=== PATIENT | female | born 1995 | race Native Hawaiian/Other Pacific Islander ===

== ENCOUNTER 2017-08-27 18:30 | Observation (INO) | payer SELFPAY ==
[~2017-08-27] VITALS: Ht 162.6 cm; Wt 75.0 kg
[2017-08-27 18:31] VITALS: BP 136/76; PULSE 125; RESP 20; TEMP 103.1; O2SAT 100
[2017-08-27] MEDS ORDERED: SODIUM CHLOR 0.9% 1000 ML INJ 800 ML IV ONE (20:17)
[2017-08-27] MEDS ORDERED: SODIUM CHLOR 0.9% 1000 ML INJ 1,000 ML IV ONE ×2 (20:17→22:30)
[2017-08-27] MEDS ORDERED: KETOROLAC TROMETHAMINE 30 MG/ML (IVP) VIAL IV PUSH ONE (20:30)
[2017-08-27] MEDS ORDERED: METOCLOPRAMIDE HCL 10 MG/2 ML VIAL IV PUSH ONE (20:30)
[2017-08-27] MEDS ORDERED: ACETAMINOPHEN 325 MG TAB PO ONE (20:30)
--- NOTE | 2017-08-27 20:33 | PD ---
HPI Chief Complaint: Fever Time Seen by Provider: 19:57 Travel History International Travel<30 days: No Contact w/Intl Traveler<30days: No Traveled to known affect area: No History of Present Illness HPI 22-year-old female here for evaluation of fever and headache. The patient is in college and lives in the dormitory. Symptoms started yesterday evening with fever and headache. Patient also reports severe sore throat. She has felt nauseous with vomiting as well. Headache is diffuse and pressure-like. No neck pain or stiffness. No rash. No visual disturbance. No paresthesias or motor deficits. No cough or upper respiratory symptoms. PFSH Past Medical History Immunizations Current: Yes Tetanus Vaccination: Unknown Influenza Vaccination: No ?: Unknown LMP: 08/20/17 Social History Alcohol Use: No Tobacco Use: No Substance Use: No Allergies-Medications (Allergen,Severity, Reaction): Coded Allergies: No Known Allergies (Unverified , 08/27/17) Reported Meds & Prescriptions Reported Meds & Active Scripts Active No Active Prescriptions or Reported Medications Review of Systems Except as stated in HPI: all other systems reviewed are Neg Physical Exam Narrative GENERAL: Well-developed, well-nourished, awake, alert, no apparent distress. SKIN: Focused skin assessment warm/dry. No rash. HEAD: Atraumatic. Normocephalic. EYES: Pupils equal and round. No scleral icterus. No injection or drainage. ENT: No nasal bleeding or discharge. Mucous membranes pink and moist. Pharynx is erythematous without exudates. Uvula is midline. Normal phonation. No drooling or stridor. No trismus. NECK: Trachea midline. No JVD. No nuchal rigidity. CARDIOVASCULAR: Regular rate and rhythm. No murmur appreciated. RESPIRATORY: No accessory muscle use. Clear to auscultation. Breath sounds equal bilaterally. GASTROINTESTINAL: Abdomen soft, non-tender, nondistended. MUSCULOSKELETAL: No obvious deformities. No clubbing. No cyanosis. No edema. NEUROLOGICAL: Awake and alert. No obvious cranial nerve deficits. Motor grossly within normal limits. Normal speech. PSYCHIATRIC: Appropriate mood and affect; insight and judgment normal. Data Data Last Documented VS Vital Signs Date Time Temp Pulse Resp B/P (MAP) Pulse Ox O2 Delivery O2 Flow Rate FiO2 08/27/17 22:50 94 16 97/60 (72) 99 Room Air 08/27/17 21:34 98.9 Orders Orders Sepsis Workup Initiated (08/27/17 ) Complete Blood Count With Diff (08/27/17 20:17) Comprehensive Metabolic Panel (08/27/17 20:17) Beta Hcg (Quant/Titer) (08/27/17 20:17) Prothrombin Time / Inr (Pt) (08/27/17 20:17) Act Partial Throm Time (Ptt) (08/27/17 20:17) Lactic Acid Sepsis Protocol (08/27/17 20:17) Urinalysis - C+S If Indicated (08/27/17 20:17) Influenzae A/B Antigen (08/27/17 20:17) Blood Culture (08/27/17 20:17) Chest, Single Ap (08/27/17 20:17) Ecg Monitoring (08/27/17 20:17) Iv Access Insert/Monitor (08/27/17 20:17) Oximetry (08/27/17 20:17) Acetaminophen (Tylenol) (08/27/17 20:30) Sodium Chlor 0.9% 1000 Ml Inj (Ns 1000 M (08/27/17 20:17) Sodium Chlor 0.9% 1000 Ml Inj (Ns 1000 M (08/27/17 20:17) Group A Rapid Strep Screen (08/27/17 20:17) Ketorolac Inj (Toradol Inj) (08/27/17 20:30) Metoclopramide Inj (Reglan Inj) (08/27/17 20:30) Strep Culture (Group A) (08/27/17 20:31) Sodium Chlor 0.9% 1000 Ml Inj (Ns 1000 M (08/27/17 22:30) Labs Laboratory Tests Test 08/27/17 20:31 White Blood Count 10.2 TH/MM3 Red Blood Count 4.90 MIL/MM3 Hemoglobin 13.5 GM/DL Hematocrit 40.6 % Mean Corpuscular Volume 82.9 FL Mean Corpuscular Hemoglobin 27.5 PG Mean Corpuscular Hemoglobin Concent 33.2 % Red Cell Distribution Width 13.1 % Platelet Count 219 TH/MM3 Mean Platelet Volume 8.2 FL Neutrophils (%) (Auto) 87.8 % Lymphocytes (%) (Auto) 4.9 % Monocytes (%) (Auto) 6.7 % Eosinophils (%) (Auto) 0.1 % Basophils (%) (Auto) 0.5 % Neutrophils # (Auto) 9.0 TH/MM3 Lymphocytes # (Auto) 0.5 TH/MM3 Monocytes # (Auto) 0.7 TH/MM3 Eosinophils # (Auto) 0.0 TH/MM3 Basophils # (Auto) 0.1 TH/MM3 CBC Comment DIFF FINAL Differential Comment Prothrombin Time 10.4 SEC Prothromb Time International Ratio 1.0 RATIO Activated Partial Thromboplast Time 31.7 SEC Urine Color LIGHT-YELLOW Urine Turbidity CLEAR Urine pH 7.5 Urine Specific [place] 1.005 Urine Protein NEG mg/dL Urine Glucose (UA) NEG mg/dL Urine Ketones NEG mg/dL Urine Occult Blood NEG Urine Nitrite NEG Urine Bilirubin NEG Urine Urobilinogen LESS THAN 2.0 MG/DL Urine Leukocyte Esterase TRACE Urine RBC 1 /hpf Urine WBC 1 /hpf Urine Squamous Epithelial Cells 1 /hpf Microscopic Urinalysis Comment CATH-CULT NOT IND Blood Urea Nitrogen 11 MG/DL Creatinine 0.82 MG/DL Random Glucose 83 MG/DL Total Protein 8.3 GM/DL Albumin 4.2 GM/DL Calcium Level 9.3 MG/DL Alkaline Phosphatase 99 U/L Aspartate Amino Transf (AST/SGOT) 22 U/L Alanine Aminotransferase (ALT/SGPT) 20 U/L Total Bilirubin 0.3 MG/DL Sodium Level 135 MEQ/L Potassium Level 3.5 MEQ/L Chloride Level 103 MEQ/L Carbon Dioxide Level 25.4 MEQ/L Anion Gap 7 MEQ/L Estimat Glomerular Filtration Rate 87 ML/MIN Lactic Acid Level 1.4 mmol/L Human Chorionic Gonadotropin, Quant LESS THAN 1 MIU/ML [facility] Medical Decision Making Medical Screen Exam Complete: Yes Emergency Medical Condition: Yes Differential Diagnosis Sepsis, viral illness, pharyngitis, influenza, meningitis, encephalitis, UTI, pneumonia Narrative Course Initial vital signs show heart rate 125, blood pressure 136/76, pulse ox 100% on room air, oral temp of 103.1F. Repeat vital signs after 2 L normal saline IV and Tylenol show heart rate 113, blood pressure 94/42, pulse ox 98% on room air, oral temp of 98.9F. CBC: WBC 10.2, hemoglobin 13.5, hematocrit 40.6, platelets 219, neutrophils 87.8 %. CMP is unremarkable. Lactic acid is 1.4. Beta hCG is negative. UA is not suggestive of UTI. Influenza is negative. Group A strep is negative. Chest x-ray: No acute disease. The patient rates tachycardic spiders receiving 2 L normal saline IV. Her heart rate is between 110 and 120. She was given IV Reglan and IV Toradol and reports that her headache has completely resolved. There is no nuchal rigidity on exam. Likelihood of meningitis is low. After the third liter of normal saline IV the patient's heart rate remains over 100 at 105 bpm while sleeping, increases to 115 bpm when she awakens. Again she states her headache has resolved. She has defervesced. Given persistent tachycardia, the patient be admitted for overnight observation. Case discussed with hospitalist Dr. Gunter who will admit the patient to her service. The patient is amenable to this plan. Diagnosis Primary Impression: Sinus tachycardia Additional Impression: Fever Qualified Codes: R50.9 - Fever, unspecified Admitting Information Admitting Physician Requests: Observation Scripts No Active Prescriptions or Reported Meds Steven Ortiz MD Aug 27, 2017 20:33
[2017-08-27 21:02] LABS: BASOPHIL # 0.1 TH/MM3 (0-0.2); BASOPHIL % 0.5 % (0.0-2.0); EOSINOPHIL % 0.1 % (0.0-4.0); HEMATOCRIT 40.6 % (35.0-46.0); HEMO FLAGS DIFF FINAL; LYMPH % 4.9 % (9.0-44.0); LYMPHOCYTE # 0.5 TH/MM3 (1.0-4.8); MEAN CELL VOLUME 82.9 FL (80.0-100.0); MEAN CORPUSCULAR HEMOGLOBIN 27.5 PG (27.0-34.0); MEAN CORPUSCULAR HGB CONC 33.2 % (32.0-36.0); MONO % 6.7 % (0.0-8.0); NEUT % 87.8 % (16.0-70.0); PLATELET COUNT 219 TH/MM3 (150-450); RED CELL DISTRIBUTION WIDTH 13.1 % (11.6-17.2); WHITE BLOOD COUNT 10.2 TH/MM3 (4.0-11.0)
[2017-08-27 21:08] LABS: BLOOD, URINE NEG (NEG); GLUCOSE,URINE NEG (NEG); KETONE, URINE NEG (NEG); NITRITE,URINE NEG (NEG); PH, URINE 7.5 (5.0-8.5); SQUAMOUS EPITHELIAL CELL URINE 1 /hpf (0-5); URINE COLOR LIGHT-YELLOW (YELLW/STRAW)
[2017-08-27 21:09] LABS: COMMENT (UR) CATH-CULT NOT IND; CULTURE IF INDICATED CATH CULTURE NOT IND
[2017-08-27 21:17] LABS: APTT (PATIENT) 31.7 SEC (24.3-30.1); PROTHROMBIN TIME - PATIENT 10.4 SEC (9.8-11.6)
[2017-08-27 21:25] LABS: ANION GAP 7 MEQ/L (5-15); AST (GOT) 22 U/L (15-37); BICARBONATE 25.4 MEQ/L (21.0-32.0); BLOOD UREA NITROGEN 11 MG/DL (7-18); CHLORIDE 103 MEQ/L (98-107); GLOMERULAR FILTRATION RATE 87 ML/MIN (>89); POTASSIUM 3.5 MEQ/L (3.5-5.1); SODIUM (NA) 135 MEQ/L (136-145)
[2017-08-27 21:26] LABS: ALT (GPT) 20 U/L (10-53)
--- NOTE | 2017-08-27 21:29 | RADRPT ---
EXAM DATE/TIME: 08/27/2017 20:45 [place] COMPARISON: No previous studies available for comparison. INDICATIONS : Fever and aches. MEDICAL HISTORY : None. SURGICAL HISTORY : None. ENCOUNTER: Initial ACUITY: 3 days PAIN SCORE: 3/10 LOCATION: Bilateral chest FINDINGS: A single view of the chest demonstrates the lungs to be symmetrically aerated without evidence of mas s, infiltrate or effusion. The cardiomediastinal contours are unremarkable. Osseous structures are intact. CONCLUSION: No acute disease. Jamie Hull MD on August 27, 2017 at 21:27 Board Certified Radiologist. This report was verified electronically.
[2017-08-27 21:31] LABS: ALKALINE PHOSPHATASE 99 U/L (45-117); BETA HCG QUANT LESS THAN 1 MIU/ML (0-5); TOTAL BILIRUBIN ADULT 0.3 MG/DL (0.2-1.0)
[2017-08-27 21:34] VITALS: BP 94/42; PULSE 113; RESP 16; TEMP 98.9; O2SAT 98
[2017-08-27 22:50] VITALS: BP 97/60; PULSE 94; RESP 16; O2SAT 99
[2017-08-27] MEDS ORDERED: LACTULOSE SYRUP 20 GM/30 ML CUP PO PRN (23:15)
[2017-08-27] MEDS ORDERED: BISACODYL 10 MG SUPP RECTAL PRN (23:15)
[2017-08-27] MEDS ORDERED: SENNOSIDES 8.6 MG TAB PO PRN (23:15)
[2017-08-27] MEDS ORDERED: ACETAMINOPHEN 325 MG TAB PO PRN (23:15)
[2017-08-27] MEDS ORDERED: NALOXONE HCL 0.4 MG/ML AMP IV PUSH PRN (23:15)
[2017-08-27] MEDS ORDERED: MAGNESIUM HYDROXIDE SUSP 30 ML CUP PO PRN (23:15)
[2017-08-27] MEDS ORDERED: SODIUM CHLORIDE 0.9% FLUSH 10 ML FLUSH IV FLUSH PRN (23:15)
[2017-08-27] MEDS ORDERED: ONDANSETRON HCL 4 MG/2 ML VIAL IVP PRN (23:15)
[2017-08-28] VITALS (9 sets, daily range): BP systolic 104–127; BP diastolic 55–78; PULSE 66–122; RESP 17–20; TEMP 97.9–103; O2SAT 95–100
[2017-08-28] MEDS: SODIUM CHLOR 0.9% 1000 ML INJ 1,000 ML IV SCH ×3 (01:53→16:09)
--- NOTE | 2017-08-28 06:06 | HHI.HP ---
[facility] No Primary Care Physician Admission Diagnosis persistent tachycardia, febrile illness Diagnoses: Travel History International Travel<30 Days: No Contact w/Intl Traveler <30 Da: No Traveled to Known Affected Are: No History of Present Illness 22-year-old female with no past medical history who presents to the emergency department for evaluation of fever and a headache. The patient is a college student who lives in the dorms. She states that her symptoms started yesterday evening with a fever and a headache. She also reports sore throat. Denies cough/shortness of breath. She has had intermittent nausea/emesis. She denies any neck pain or stiffness. No visual disturbances. No paresthesias or motor deficits. On arrival to the emergency department the patient was febrile to 103.1 and was tachycardic to 125. Her fever persisted despite Tylenol and she remained tachycardic. Chest x-ray, UA within normal limits. No leukocytosis however left shift is present. Review of Systems Positive fever/chills Denies blurry vision, otorrhea, rhinorrhea Positive sore throat, no cough No chest pain, palpitations, shortness of breath No abdominal pain Denies constipation/diarrhea/nausea/vomiting Denies muscle pain/weakness No rashes Past Family Social History Past Medical History None Past Surgical History None Reported Medications None Allergies: Coded Allergies: No Known Allergies (Unverified , 08/27/17) Family History No family history of coronary artery disease or diabetes mellitus. Social History Denies alcohol, illicit drugs and tobacco. Physical Exam Vital Signs Vital Signs Date Time Temp Pulse Resp B/P (MAP) Pulse Ox O2 Delivery O2 Flow Rate FiO2 08/28/17 03:42 20 08/28/17 03:40 103.0 122 18 118/65 (82) 97 08/28/17 02:46 103.0 96 18 117/68 (84) 97 08/27/17 22:50 94 16 97/60 (72) 99 Room Air 08/27/17 21:34 98.9 113 16 94/42 (59) 98 Room Air 08/27/17 18:31 103.1 125 20 136/76 (96) 100 Room Air Physical Exam GENERAL: Young female lying in bed SKIN: No rashes, ecchymoses or lesions. Cool and dry. HEAD: Atraumatic. Normocephalic. No temporal or scalp tenderness. EYES: Pupils equal round and reactive. Extraocular motions intact. No scleral icterus. No injection or drainage. ENT: Nose without bleeding, purulent drainage or septal hematoma. Throat without erythema, tonsillar hypertrophy or exudate. Uvula midline. Airway patent. NECK: Trachea midline. No JVD or lymphadenopathy. Supple, nontender, no meningeal signs. CARDIOVASCULAR: Regular rate and rhythm without murmurs, gallops, or rubs. RESPIRATORY: Clear to auscultation. Breath sounds equal bilaterally. No wheezes , rales, or rhonchi. GASTROINTESTINAL: Abdomen soft, non-tender, nondistended. No hepato-splenomegaly , or palpable masses. No guarding. MUSCULOSKELETAL: Extremities without clubbing, cyanosis, or edema. No joint tenderness, effusion, or edema noted. No calf tenderness. NEUROLOGICAL: Awake and alert. Cranial nerves II through XII intact. Motor and sensory grossly within normal limits. Normal speech. Laboratory Laboratory Tests Test 08/27/17 20:31 White Blood Count 10.2 Red Blood Count 4.90 Hemoglobin 13.5 Hematocrit 40.6 Mean Corpuscular Volume 82.9 Mean Corpuscular Hemoglobin 27.5 Mean Corpuscular Hemoglobin Concent 33.2 Red Cell Distribution Width 13.1 Platelet Count 219 Mean Platelet Volume 8.2 Neutrophils (%) (Auto) 87.8 Lymphocytes (%) (Auto) 4.9 Monocytes (%) (Auto) 6.7 Eosinophils (%) (Auto) 0.1 Basophils (%) (Auto) 0.5 Neutrophils # (Auto) 9.0 Lymphocytes # (Auto) 0.5 Monocytes # (Auto) 0.7 Eosinophils # (Auto) 0.0 Basophils # (Auto) 0.1 CBC Comment DIFF FINAL Differential Comment Prothrombin Time 10.4 Prothromb Time International Ratio 1.0 Activated Partial Thromboplast Time 31.7 Urine Color LIGHT-YELLOW Urine Turbidity CLEAR Urine pH 7.5 Urine Specific [place] 1.005 Urine Protein NEG Urine Glucose (UA) NEG Urine Ketones NEG Urine Occult Blood NEG Urine Nitrite NEG Urine Bilirubin NEG Urine Urobilinogen LESS THAN 2.0 Urine Leukocyte Esterase TRACE Urine RBC 1 Urine WBC 1 Urine Squamous Epithelial Cells 1 Microscopic Urinalysis Comment CATH-CULT NOT IND Blood Urea Nitrogen 11 Creatinine 0.82 Random Glucose 83 Total Protein 8.3 Albumin 4.2 Calcium Level 9.3 Alkaline Phosphatase 99 Aspartate Amino Transf (AST/SGOT) 22 Alanine Aminotransferase (ALT/SGPT) 20 Total Bilirubin 0.3 Sodium Level 135 Potassium Level 3.5 Chloride Level 103 Carbon Dioxide Level 25.4 Anion Gap 7 Estimat Glomerular Filtration Rate 87 Lactic Acid Level 1.4 Human Chorionic Gonadotropin, Quant LESS THAN 1 Date/Time Source Procedure Growth Status 08/27/17 20:31 Blood Peripheral Aerobic Blood Culture Pending Received 08/27/17 20:31 Blood Peripheral Anaerobic Blood Culture Pending Received 08/27/17 20:31 Throat Group A Streptococcus Screen Pending Received Result Diagram: 08/27/17203008/27/172030 Yonasrini VTE Risk Assessment Caprini VTE Risk Assessment: No/Low Risk (score <= 1) Caprini Risk Assessment Model Point Value = 1 Point Value = 2 Point Value = 3 Point Value = 5 Age 41-60 Minor surgery BMI > 25 kg/m2 Swollen legs Varicose veins or History of unexplained or recurrent spontaneous Oral contraceptives or hormone replacement Sepsis (< 1 month) Serious lung disease, including pneumonia (< 1 month) Abnormal pulmonary function Acute myocardial infarction Congestive heart failure (< 1 month) History of inflammatory bowel disease Medical patient at bed rest Age 61-74 Arthroscopic surgery Major open surgery (> 45 min) Laparoscopic surgery (> 45 min) Malignancy Confined to bed (> 72 hours) Immobilizing plaster cast Central venous access Age >= 75 History of VTE Family history of VTE Factor V Leiden Prothrombin [id number] Lupus anticoagulant Anticardiolipin antibodies Elevated serum homocysteine Heparin-induced thrombocytopenia Other congenital or acquired thrombophilia Stroke (< 1 month) Elective arthroplasty Hip, pelvis, or leg fracture Acute spinal cord injury (< 1 month) Prophylaxis Regimen Total Risk Factor Score Risk Level Prophylaxis Regimen 0-1 Low Early ambulation 2 Moderate Order ONE of the following: *Sequential Compression Device (SCD) *Heparin 5000 units SQ BID 3-4 Higher Order ONE of the following medications: *Heparin 5000 units SQ TID *Enoxaparin/Lovenox 40 mg SQ daily (WT < 150 kg, CrCl > 30 mL/min) *Enoxaparin/Lovenox 30 mg SQ daily (WT < 150 kg, CrCl > 10-29 mL/min) *Enoxaparin/Lovenox 30 mg SQ BID (WT < 150 kg, CrCl > 30 mL/min) AND/OR *Sequential Compression Device (SCD) 5 or more Highest Order ONE of the following medications: *Heparin 5000 units SQ TID (Preferred with Epidurals) *Enoxaparin/Lovenox 40 mg SQ daily (WT < 150 kg, CrCl > 30 mL/min) *Enoxaparin/Lovenox 30 mg SQ daily (WT < 150 kg, CrCl > 10-29 mL/min) *Enoxaparin/Lovenox 30 mg SQ BID (WT < 150 kg, CrCl > 30 mL/min) AND *Sequential Compression Device (SCD) Assessment and Plan Assessment and Plan Assessment/plan: 1. Persistent tachycardia Patient's heart rate fluctuating, in low 100s during my exam Telemetry shows normal sinus rhythm with tachycardia, reviewed by me Likely secondary to infectious process Continue IV fluids Continue telemetry and monitor TSH pending 2. Fever Patient remains febrile despite treatment with Tylenol Chest x-ray, UA within normal limits Group A strep, influenza negative CBC shows white count of 10.2 with left shift Lactic acid 1.4 Suspect secondary to viral infection Continue Tylenol, alternating with Motrin Monitor with f/u CBC 3. Headache/Nausea/Vomiting Patient experiencing complete resolution of her symptoms at this time FEN Regular diet Electrolytes: monitor and replete prn SCDs Case discussed with ER physician at length Patricia Gutner MD Aug 28, 2017 06:06
[2017-08-28] MEDS ORDERED: IBUPROFEN 400 MG TAB PO PRN (06:15)
[2017-08-28] MEDS: SODIUM CHLORIDE 0.9% FLUSH 10 ML FLUSH IV FLUSH SCH ×2 (09:00→16:10)
[2017-08-28] MEDS: DOCUSATE SODIUM 50 MG/SENNA 8.6 MG TAB PO SCH ×2 (09:00→21:00)
[2017-08-28 09:14] LABS: AUTOMATED NEUTROPHIL # 6.3 TH/MM3 (1.8-7.7); BASOPHIL % 0.5 % (0.0-2.0); HEMATOCRIT 34.6 % (35.0-46.0); HEMO FLAGS DIFF FINAL; LYMPHOCYTE # 0.5 TH/MM3 (1.0-4.8); MEAN CELL VOLUME 83.6 FL (80.0-100.0); MEAN CORPUSCULAR HEMOGLOBIN 27.9 PG (27.0-34.0); MEAN CORPUSCULAR HGB CONC 33.4 % (32.0-36.0); MONO % 8.5 % (0.0-8.0); PLATELET COUNT 168 TH/MM3 (150-450); RED BLOOD COUNT 4.14 MIL/MM3 (4.00-5.30); RED CELL DISTRIBUTION WIDTH 12.6 % (11.6-17.2); WHITE BLOOD COUNT 7.5 TH/MM3 (4.0-11.0)
[2017-08-28 09:58] LABS: BICARBONATE 21.4 MEQ/L (21.0-32.0); POTASSIUM 3.6 MEQ/L (3.5-5.1)
[2017-08-28 10:10] LABS: CALCIUM-PROTEIN CORRECTED 7.7 MG/DL (8.5-10.1)
--- NOTE | 2017-08-28 16:51 | HHI.PR ---
Addendum to Inpatient Note Addendum Reason: Additional Documentation Additional Information The pt wanted to go home. She reported a lingering intermittent mild headache. She spiked another fever and was told it would be best to remain in the hospital for further observation. Her tachycardia improved with fluids. Will continue to monitor the pt closely. If remains febrile would pursue LP in AM with IR to rule out meningitis. Work-up has been negative so far. Likely a viral process. Nikolas Jara DO Aug 28, 2017 16:51
[2017-08-29 00:09] VITALS: PULSE 68
[2017-08-29 03:31] VITALS: BP 97/54; PULSE 77; RESP 17; TEMP 98.8; O2SAT 97
[2017-08-29 03:46] VITALS: PULSE 63
[2017-08-29] MEDS: SODIUM CHLOR 0.9% 1000 ML INJ 1,000 ML IV SCH (05:14)
[2017-08-29] MEDS: SODIUM CHLORIDE 0.9% FLUSH 10 ML FLUSH IV FLUSH SCH (09:00)
[2017-08-29] MEDS: DOCUSATE SODIUM 50 MG/SENNA 8.6 MG TAB PO SCH (09:00)
[2017-08-29 09:18] VITALS: BP 113/66; PULSE 89; RESP 16; TEMP 98.7; O2SAT 99
[2017-08-29 12:21] VITALS: BP 126/70; PULSE 75; RESP 18; TEMP 98.2; O2SAT 95
--- NOTE | 2017-08-29 13:20 | HHI.DCPOC ---
Discharge Care Plan Diagnosis: (1) Viral syndrome (2) Sinus tachycardia (3) Fever Goals to Promote Your Health * To prevent worsening of your condition and complications * To maintain your health at the optimal level Directions to Meet Your Goals Take your medications as prescribed Follow your dietary instruction Follow activity as directed Keep your appointments as scheduled Take your immunizations and boosters as scheduled If your symptoms worsen call your PCP, if no PCP go to Urgent Care Center or Emergency Room Smoking is Dangerous to Your Health. Avoid second hand smoke Call the 24-hour hour crisis hotline for domestic abuse at Nikolas Jara DO Aug 29, 2017 13:20
--- NOTE | 2017-08-29 14:21 | HHI.PR ---
Subjective Remarks The patient felt good today and wanted to go home. She said her headache was much better. She did not feel feverish. She was studying for tests. Discussed with nursing. Objective Vitals Vital Signs Date Time Temp Pulse Resp B/P (MAP) Pulse Ox O2 Delivery O2 Flow Rate FiO2 08/29/17 12:21 98.2 75 18 126/70 (88) 95 08/29/17 09:18 98.7 89 16 113/66 (82) 99 08/29/17 03:46 63 08/29/17 03:31 98.8 77 17 97/54 (68) 97 08/29/17 00:09 68 08/28/17 23:57 98.1 66 17 109/64 (79) 98 08/28/17 20:30 99 08/28/17 20:17 98.5 101 17 122/68 (86) 97 08/28/17 17:09 18 08/28/17 15:53 102.7 68 18 127/78 (94) 100 I/O 08/28/17 08/28/17 08/28/17 08/29/17 08/29/17 08/29/17 07:00 15:00 23:00 07:00 15:00 23:00 Intake Total 800 ml 300 ml Balance 800 ml 300 ml Intake IV Total 800 ml 300 ml Result Diagram: 08/28/1752 08/28/1752 Imaging Last Impressions Chest X-Ray 08/27/172016 Signed Impressions: Service Date/Time: Sunday, August 27, 2017 20:45 - CONCLUSION: No acute disease. Jamie Hull MD Objective Remarks GENERAL: No apparent distress. SKIN: No rashes, ecchymoses or lesions. Cool and dry. HEAD: Atraumatic. Normocephalic. No temporal or scalp tenderness. EYES: Pupils equal round and reactive. Extraocular motions intact. No scleral icterus. No injection or drainage. ENT: Nose without bleeding, purulent drainage or septal hematoma. Throat without erythema, tonsillar hypertrophy or exudate. Uvula midline. Airway patent. NECK: Trachea midline. No JVD or lymphadenopathy. Supple, nontender, no meningeal signs. CARDIOVASCULAR: Regular rate and rhythm without murmurs, gallops, or rubs. RESPIRATORY: Clear to auscultation. Breath sounds equal bilaterally. No wheezes , rales, or rhonchi. GASTROINTESTINAL: Abdomen soft, non-tender, nondistended. No hepato-splenomegaly , or palpable masses. No guarding. MUSCULOSKELETAL: Extremities without clubbing, cyanosis, or edema. No joint tenderness, effusion, or edema noted. NEUROLOGICAL: Awake and alert. Cranial nerves II through XII intact. Motor and sensory grossly within normal limits. Normal speech. PSYCH: Mood and affect appropriate. Medications and IVs Current Medications Medications (Trade) Dose Ordered Sig/Justin Route Start Time Stop Time Status Last Admin Sodium Chloride 1,000 ml @ 100 mls/hr Q10H IV 08/27/17 23:14 08/28/17 16:09 (NS Flush) 2 ml UNSCH PRN IV FLUSH 08/27/17 23:15 (NS Flush) 2 ml BID IV FLUSH 08/28/17 09:00 08/28/17 16:10 (Tylenol) 650 mg Q4H PRN PO 08/27/17 23:15 08/28/17 02:42 (Zofran Inj) 4 mg Q6H PRN IVP 08/27/17 23:15 (Narcan Inj) 0.4 mg UNSCH PRN IV PUSH 08/27/17 23:15 (Yuli-Colace) 1 tab BID PO 08/28/17 09:00 (Milk Of Magnesia Liq) 30 ml Q12H PRN PO 08/27/17 23:15 (Senokot) 17.2 mg Q12H PRN PO 08/27/17 23:15 (Dulcolax Supp) 10 mg DAILY PRN RECTAL 08/27/17 23:15 (Lactulose Liq) 30 ml DAILY PRN PO 08/27/17 23:15 (Motrin) 400 mg Q4H PRN PO 08/28/17 06:15 08/28/17 16:09 A/P Assessment and Plan Fever Chest x-ray, UA within normal limits. Group A strep, influenza negative. No leukocytosis. Lactic acid 1.4. Suspect secondary to viral infection. No fever since 08/28 afternoon. - Continue Tylenol, alternating with Motrin. - encourage lots of fluids. - note for school provided. Tachycardia The pt had sinus tach, s/t fever as above. Resolved. TSH low but free T4 and T3 normal. - S/p IV fluids and telemetry. - encourage hydration. Headache/Nausea/Vomiting Patient experiencing complete resolution of her symptoms at this time. - ADAT. - pain control as needed. PPx: Ambulation Discharge Planning D/c home Nikolas Jara DO Aug 29, 2017 14:21
== END 2017-08-29 15:30 | disposition home or self-care (01) ==
LOC: NEPD 18:30 → NEDA 23:19 → NEPFCDU 08-28 00:25
PROVIDERS: ADMIT Hospitalist; ATTEND Hospitalist
DX: R00.0 Tachycardia, unspecified (principal); R50.9 Fever, unspecified; R51 Headache; J02.9 Acute pharyngitis, unspecified; R11.2 Nausea with vomiting, unspecified; R79.1 Abnormal coagulation profile
CPT/HCPCS: 71010; 80048; 80053; 81001; 82550; 82948; 83605; 84155; 84439; 84443; 84480; 84702; 85025; 85610; 85730; 87040; 87081; 87804; 87880; 96361; 96374; 96375; 99285; G0378; J1885; J2765; J7030